=== PATIENT | female | born 1940 | race Caucasian/White ===

== ENCOUNTER 2019-12-12 05:51 | Inpatient (IN) | payer MEDICARE, BC ==
[2019-12-12] MEDS ORDERED: metroNIDAZOLE/Normal Saline 500 MG in Premix Bag 1 BAG IV ONE (06:30)
[2019-12-12] MEDS ORDERED: Bupivacaine 0.5%/EPINEPHrine 1:200,000 50 ML MDV ONE (06:39)
[2019-12-12] MEDS: Sodium Chloride 0.9% 1,000 ML IV SCH ×2 (07:06→15:19)
[2019-12-12] MEDS ORDERED: Neostigmine Methylsulfate 1 MG/ML 5 ML Syringe ONE (07:29)
[2019-12-12] MEDS ORDERED: Propofol 200 MG/20 ML SDV ONE (07:29)
[2019-12-12] MEDS ORDERED: Glycopyrrolate 0.2 MG/ML 5 ML MDV ONE (07:29)
[2019-12-12] MEDS ORDERED: fentaNYL 250 MCG/5 ML SDV ONE (07:29)
[2019-12-12] MEDS ORDERED: Ondansetron 4 MG/2 ML SDV ONE (07:29)
[2019-12-12] MEDS ORDERED: Rocuronium 50 MG/5 ML Vial ONE (07:29)
[2019-12-12] MEDS ORDERED: Dexamethasone 4 MG/ML SDV ONE (07:29)
[2019-12-12] MEDS ORDERED: fentaNYL 100 MCG/2 ML SDV ONE (07:30)
[2019-12-12] MEDS ORDERED: Sodium Chloride 0.9% 10 ML ONE (07:30)
[2019-12-12] MEDS ORDERED: Naloxone 0.4 MG/ML SDV IVPUSH PRN (08:00)
[2019-12-12] MEDS: ceFAZolin 2 GM in Premix Bag 1 BAG IV ONE ×2 (08:45→14:39)
[2019-12-12] MEDS ORDERED: Lactated Ringers 1,000 ML ONE (09:50)
[2019-12-12] MEDS ORDERED: Scopolamine 1.5 MG Transdermal Patch TOP ONE ×2 (11:24→13:00)
[2019-12-12] MEDS ORDERED: diphenhydrAMINE 50 MG/ML SDV IVPUSH PRN ×2 (11:24→13:00)
[2019-12-12] MEDS ORDERED: Albuterol/Ipratropium 3.0-0.5 MG/3 ML Neb Soln NEB PRN (11:24)
[2019-12-12] MEDS ORDERED: Pantoprazole 40 MG Tab.CR PO SCH ×2 (11:45→16:30)
[2019-12-12] MEDS: fentaNYL 1,250 MCG in Sodium Chloride 0.9% 225 ML EPIDUR SCH (12:33)
[2019-12-12] MEDS ORDERED: Naloxone 0.4 MG/ML SDV IV PRN (13:00)
[2019-12-12] MEDS ORDERED: Ondansetron 4 MG/2 ML SDV IVPUSH PRN (13:39)
[2019-12-12] MEDS ORDERED: Prochlorperazine 10 MG/2 ML SDV IV PRN (13:45)
[2019-12-12] MEDS: VERIFY SCOP PATCH TOP SCH (15:50)
[2019-12-12] MEDS ORDERED: Promethazine 12.5 MG in Sodium Chloride 0.9% 50 ML IV PRN (16:15)
[2019-12-12] MEDS ORDERED: Promethazine 25 MG in Sodium Chloride 0.9% 50 ML IV PRN (16:16)
[2019-12-12] MEDS ORDERED: Dronabinol 2.5 MG Cap PO PRN (16:25)
[2019-12-12] MEDS: Pantoprazole 40 MG Vial IVPUSH SCH (17:17)
[2019-12-12] MEDS ORDERED: hydrOXYzine HCL 100 MG/2 ML SDV IM PRN (17:49)
[2019-12-13] MEDS: Sodium Chloride 0.9% 250 ML IV SCH ×5 (03:49→20:06)
[2019-12-13] MEDS ORDERED: Sodium Chloride 0.9% 250 ML IV SCH (06:15)
[2019-12-13] MEDS: VERIFY SCOP PATCH TOP SCH (08:57)
[2019-12-13] MEDS: Celecoxib 200 MG Cap PO SCH (08:57)
[2019-12-13] MEDS ORDERED: Ibuprofen 600 MG Tab PO SCH (09:00)
[2019-12-13] MEDS ORDERED: Celecoxib 200 MG Cap PO SCH (09:00)
[2019-12-13] MEDS ORDERED: traMADol 50 MG Tab PO PRN (09:54)
[2019-12-13] MEDS ORDERED: traMADol 50 MG Tab PO SCH (10:00)
[2019-12-13] MEDS: fentaNYL 1,250 MCG in Sodium Chloride 0.9% 225 ML EPIDUR SCH (10:05)
[2019-12-13] MEDS: Bisacodyl 5 MG Tab PO SCH ×2 (10:05→20:03)
[2019-12-13] MEDS ORDERED: Enoxaparin 40 MG/0.4 ML Syringe SUBCUT SCH ×2 (11:30)
[2019-12-13] MEDS ORDERED: Enoxaparin 30 MG/0.3 ML Syringe SUBCUT SCH (11:30)
[2019-12-13] MEDS: Sodium Chloride 0.9% 1,000 ML IV SCH (12:01)
[2019-12-13] MEDS: Pantoprazole 40 MG Vial IVPUSH SCH (16:18)
--- NOTE | 2019-12-13 20:04 | OR ---
DATE OF PROCEDURE: 12/12/2019 SURGEON: Saroj Stafford MD PROCEDURE: 1. Laparoscopic resection of ileocolic anastomosis (59083). 2. Extensive lysis of adhesions (75842). 3. Mobilization of splenic flexure (26078). 4. Liver biopsy, wedge (82303). COMPLICATIONS: None. LIBRARY CONSULTANT: None. 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 RISKS: Risks, benefits, alternatives, and limitations including, but not limited to infection, bleeding, injury to abdominal structures such as pancreas, duodenum, ureters, stomach, liver, blood vessels, and others not listed here were explained to the patient who wished to proceed. We also discussed pneumonia, respiratory failure, possibility of open surgery, abscess, sepsis, , and others also not listed. The patient understands these risks and wishes to proceed. PROCEDURE IN DETAIL: The patient was placed in the supine position. 15 cm and 5 cm to the right of the xiphoid process a transverse incision was made. A Veress needle was used to enter the abdomen without abnormality and a drop test was performed without abnormality. Once the abdomen was subsequently insufflated, an Optiview trocar was entered. We immediately noted was dense adhesions due to the previous surgery. Two additional 5 mm ports were entered under direct visualization. Over the next 1 hour, dissection specifically lysis of adhesions was performed. This dissection freed small bowel from the midline abdominal incision from the left upper quadrant in proximity to the anastomosis. The anastomosis was identified in the midline. This was mobilized. The avascular line of Toldt was identified during this process and the avascular planes were attempted to be remained within; however, due to the extensive adhesions and the new orientation in anatomy from subsequent surgery, this is not always possible. The ileocolic anastomosis was identified. The small bowel was mobilized off the adhesions to the right abdomen. The mobilization again continued in that avascular plane in proximity to the SMA. Because the patient had a right hemicolectomy before with this significant anatomical procedure; however, the objective was to get at least 5 cm of margin from the polyp itself. The omentum would be mobilized through its multiple sheaths and transected using Harmonic Scalpel. Eventually, the lesser sac could be entered. This was further mobilized. The pancreas and duodenum were identified during this process, however, were not interacted with in anyway other than dissection. The dissection continued. The gastrocolic ligament would also be transected during this process. The mobilization of splenic flexure was then continued on. The splenocolic ligament was identified and subsequently dissected. This was also included with the phrenoicocolic ligament. This allowed the lateral attachments of the descending colon to be further mobilized facilitating even better tensionless anastomosis. One this was fully mobilized, this was checked for tension and inability to be used in anastomosis. There was apparently no abnormality. The pressure dropped to 7 cm within the abdomen and no abnormal bleeding was noted. The patient's liver had multiple PPI type lesions ranging in and diagnosed to 100. Several of these removed using blunt biopsy technique. The left lobe of the liver medial aspect was transected using Harmonic Scalpel equipment. This was then placed then placed in the bag and sent for specimen. . No abnormalities were noted during pressure with respect to bleeding. This was then re-inspected. No abnormalities noted. The air was then removed. The small bowel and the colon were resected, however, then sent separately with staple loads. The mesentery was closed with mesenteric mayuri. On the back table, the specimen was opened and it was noted that the polyp which contained the adenocarcinoma had greater than 5 cm from its most distal margin along with 5 cm of small bowel. There was a slight paucity of lymph nodes due to previous dissection. However, it was felt that dissecting more might result in a high tension anastomosis. Once anastomosis was completed using a [id number] functional end-to-end anastomosis and using two 60 cm staple loads on the antimesenteric side of the small bowel and colon. Allis clamps were then used to close the defect that was transected. This was all performed on the wound protector and thoroughly irrigated. Tisseel was applied and anastomosis irrigated again placed back in the abdomen. The fascia was closed with #1 Vicryl suture and subcutaneous tissues approximated. The skin was closed with mayuri. The patient tolerated the procedure well. Saroj Stafford MD /[id number]
[2019-12-13] MEDS ORDERED: Sodium Chloride 0.9% 1,000 ML IV ONE (22:05)
[2019-12-14] MEDS ORDERED: Sodium Chloride 0.9% 1,000 ML IV SCH (02:05)
[2019-12-14] MEDS: Celecoxib 200 MG Cap PO SCH (09:18)
[2019-12-14] MEDS: VERIFY SCOP PATCH TOP SCH (09:18)
[2019-12-14] MEDS: Bisacodyl 5 MG Tab PO SCH ×2 (09:21→20:25)
[2019-12-14] MEDS ORDERED: Acetaminophen/HYDROcodone 325-5 MG Tab PO PRN (11:15)
[2019-12-14] MEDS ORDERED: Morphine 2 MG/ML SYRINGE IVPUSH PRN (11:17)
--- NOTE | 2019-12-14 13:56 | PN ---
DATE OF SERVICE: 12/14/2019 SUBJECTIVE: The patient has significantly improved overnight. She was doing well yesterday, but even better today. No nausea, vomiting, shortness of breath, or chest pain. She was having bowel movements. Entereg has been stopped per protocol. OBJECTIVE: VITAL SIGNS: Stable. She is afebrile per nurses. CARDIOVASCULAR: Regular rhythm and rate. RESPIRATORY: Lungs clear to auscultation bilaterally. EXTREMITIES: Incision healing well. ASSESSMENT: Status post laparoscopic colon resection. PLAN: 1. GI. Entereg has been stopped. The patient is having bowel movements. We will discontinue stool softeners in a.m. 2. Infectious disease, afebrile, normal white blood cell count. No concerns. 3. Pain management. We will discontinue epidural today. Remove Foreman catheter in a few hours. Hold Lovenox due to removal. 4. General disposition. Probable discharge in the next 24 to 48 hours. 5. Medications. [place] for pain with morphine as a backup. 6. Activity. The patient is ambulating. This will be obviously facilitated once we remove large amount of tubes, wires, Foleys, etc. today. Saroj Stafford MD /[id number]
[2019-12-14] MEDS: Pantoprazole 40 MG Tab.CR PO SCH (16:13)
[2019-12-15] MEDS: Pantoprazole 40 MG Tab.CR PO SCH (07:27)
[2019-12-15] MEDS: Bisacodyl 5 MG Tab PO SCH (08:16)
[2019-12-15] MEDS: Celecoxib 200 MG Cap PO SCH (08:16)
[2019-12-15] MEDS: VERIFY SCOP PATCH TOP SCH (08:17)
--- NOTE | 2019-12-15 12:12 | PN ---
DATE OF SERVICE: 12/15/2019 SUBJECTIVE: The patient is doing well. Pain is well controlled. No nausea, vomiting, shortness of breath, or chest pain. She is having bowel movements. OBJECTIVE: VITAL SIGNS: Stable. She is afebrile per nursing report. CARDIOVASCULAR: Regular rhythm and rate. RESPIRATORY: Lungs clear to auscultation bilaterally. SKIN: Incision healing well. No evidence of infection. ASSESSMENT: Status post colon resection. PLAN: The patient will be discharged today. Please see discharge summary for further details. Saroj Stafford MD /[id number]
--- NOTE | 2019-12-15 14:16 | DISCH ---
DISCHARGE DIAGNOSIS: Status post laparoscopic colon resection. SUMMARY OF HOSPITAL COURSE: Pleasant 79-year-old female who underwent an uneventful laparoscopic colon resection for a malignant polyp. She did quite well postoperatively and she was started on a diet immediately postoperatively and continued to advance. Prior to discharge, her pain was well controlled. No nausea, vomiting, shortness of breath, or chest pain. Having bowel movements. Tolerating pain, was essentially p.o., NSAIDs, and very rare narcotics. FOLLOWUP: With Surgery in 7 to 14 days. ACTIVITY: No lifting greater than 30 pounds x30 days. DISCHARGE MEDICATIONS: Please see MAR, but include [place] for pain.
--- NOTE | 2020-01-13 09:04 | PN ---
DATE OF SERVICE: 12/13/2019 SUBJECTIVE: The patient is doing well. No specific concerns today. No nausea, vomiting, shortness of breath, or chest pain. OBJECTIVE: VITAL SIGNS: Stable. Afebrile per nurses. CARDIOVASCULAR: Regular rhythm and rate. RESPIRATORY: Lungs are clear to auscultation bilaterally. SKIN: Dressings intact. ASSESSMENT: Status post colon resection. PLAN: Continue to advance diet. Stay on Lovenox. No specific changes with respect to medications. Saroj Stafford MD /[id number]
== END 2019-12-15 12:30 | disposition home or self-care (01) | DRG 331 ==
LOC: JP.SDS 05:51 → JP.SDSSCHI 05:51 → EDSTATUS 07:50 → JP.MS 11:24
PROVIDERS: ADMIT Surgery; ATTEND Surgery
PROC: 0DBL4ZZ Excision of Transverse Colon, Percutaneous Endoscopic Approach (ICD-10-PCS; principal; 2019-12-12)
PROC: 0FB24ZX Excision of Left Lobe Liver, Percutaneous Endoscopic Approach, Diagnostic (ICD-10-PCS; 2019-12-12)
DX: D12.3 Benign neoplasm of transverse colon (principal); I10 Essential (primary) hypertension; K76.9 Liver disease, unspecified; Z90.49 Acquired absence of other specified parts of digestive tract; Z98.41 Cataract extraction status, right eye; Z98.42 Cataract extraction status, left eye; Z79.899 Other long term (current) drug therapy
CPT/HCPCS: 36415; 80048; 83735; 84100; 85025; 85027; 86850; 86900; 86901; 86920; 86922; 88307; 94762; 97110-GP; 97161-GP; 97530-GP; 97535-GP; A9270-GY; C9113; J0690; J0780; J1100; J1650; J2405; J2550; J2704; J2710; J3010; J3490; J7030; J7050; J7120